=== PATIENT | male | born 2000 | race Caucasian/White ===

== ENCOUNTER 2024-10-17 21:36 | Emergency (ER) | payer OTHER ==
[~2024-10-17] VITALS: Ht 182.9 cm; Wt 72.6 kg
[2024-10-17 23:48] VITALS: BP 98/52; TEMP 98.2; O2SAT 98
== END 2024-10-17 23:50 | disposition home or self-care (01) ==
LOC: M ED 21:36
DX: S00.83XA Contusion of other part of head, initial encounter (principal); W51.XXXA Accidental striking against or bumped into by another person, initial encounter; Y92.330 Ice skating rink (indoor) (outdoor) as the place of occurrence of the external cause; Y93.22 Activity, ice hockey; Y99.9 Unspecified external cause status